=== PATIENT | female | born 1975 | race Two or more races ===

== ENCOUNTER 2016-07-18 13:03 | Emergency (ER) | payer OTHER ==
--- NOTE | 2016-07-18 13:44 | UCPHY ---
[id number] 4d 07/18/16 13:43 HPI/ROS: HPI: 40-year-old female presents to urgent care with chief concern headache, severe myalgias, nasal congestion, cough that onset suddenly 2 days ago. Reports temperature 100.0 at home. Denies dizziness, dysphagia, shortness of breath, chest pain, abdominal pain, nausea, vomiting, diarrhea, rash. Was exposed to flu last week at work. Did not receive a flu shot this year. No history of asthma or pneumonia. Her has MS. ROS:10 point review of systems is negative other than as stated in HPI (Mary Angela) Physical Exam: Vital signs stable, reviewed by me General: Awake, alert, calm, cooperative. No acute distress. Head: Atraumatic. EENT: Conjuctiva mildly injected. TMs intact, without redness or bulging. Nasal mucosa is erythematous with minimal clear discharge. Pharynx mildly erythematous. Uvula midline. No tonsillar abscess or exudates. No frontal or maxillary tenderness to percussion. Respiratory: Breathing unlabored. Lungs clear to auscultation bilaterally. No accessory muscle use. CV: Heart rate regular. S1-S2 present. No murmur. GI: Abdomen soft, nontender. Bowel sounds positive x4 quadrants. : Deferred Skin: Warm, dry, intact. No rashes present. Capillary refill brisk. Musculoskeletal: Full ROM all extremities. Neuro: Alert oriented x3. Strength equal in all 4 extremities. (Mary Angela) Constitutional: Initial Vital Signs Temperature (C) 36.9 C 07/18/16 13:42 Heart Rate 73 07/18/16 13:42 Respiratory Rate 18 07/18/16 13:42 Blood Pressure 94/54 L 07/18/16 13:42 O2 Sat (%) 95 07/18/16 13:42 O2 Delivery Mode Room Air Allergies/Adverse Reactions: No Known Allergies Allergy (Unverified 07/18/16 13:40) Home Medications: Medication Instructions Recorded HYDROcodone/HOMATROPINE HYCODA 5 - 10 ml PO HS PRN #60 ml 07/18/16 [Hycodan Syrup (*)] Oseltamivir Phosphate [Tamiflu] 75 mg PO BID #10 cap 07/18/16 Medical Decision Making ED Course/Re-evaluation: Lungs are clear auscultation bilaterally. No respiratory distress. No shortness of breath. Flu swab negative. Patient's symptoms are consistent with the flu. She was exposed to confirmed flu at work. Patient will be treated with Tamiflu as her has exacerbated MS presently and she requests treatment. (Mary Angela) Urgent Care PA supervision Physician documentation: The patient was evaluated and managed by the physician student assistant. My co- signature indicates that I have reviewed this chart and I agree with the findings and plan of care as documented. I am the secondary supervising physician. (Janusz Ladd) Differential Diagnosis: Differential includes but is not limited to influenza, bronchitis, reactive airway disease, pneumonia (Mary Anglea) Departure - Departure Disposition: Home, Routine, Self-Care Clinical Impression: Influenza-like illness Condition: Good Instructions: Influenza (ED) Additional Instructions: Plan: Your flu swab was negative Tamiflu as prescribed Drink plenty of fluids. Rest. You may use over the counter cough and cold medicine for symptom relief. You may use Tylenol or Ibuprofen for fever and pain control. Use saline spray or saline irrigation to each nostril twice daily-morning and evening. May use cough syrup 10 mL at bedtime only--never drink or drive while taking Return to Urgent Care or ER if you develop chest pain, difficulty breathing, or difficulty swallowing. Follow up with primary care next week--tell the office you are an "ER follow up appointment when you call. Return here promptly for worsening symptoms such as facial/tooth pain, chest pain, shortness of breath, unremitting fever, nausea, vomiting, difficulty swallowing. Referrals: NONE *PRIMARY CARE P,. [Primary Care Provider] - As per Instructions Ina Lopez MD [Medical Doctor] - As per Instructions Stand Alone Forms: Work Excuse Prescriptions: HYDROcodone/HOMATROPINE HYCODA [Hycodan Syrup (*)] 5 - 10 ml PO HS PRN #60 ml PRN Reason: severe cough preventing sleep Oseltamivir Phosphate [Tamiflu] 75 mg PO BID #10 cap - PQRS PQRS Measurement: Not applicable (Mary Angela)
[2016-07-18 13:45] VITALS: BP 94/54; PULSE 73; RESP 18; TEMP 98.4; O2SAT 95
== END 2016-07-18 13:53 | disposition home or self-care (01) ==
LOC: CED 13:03
DX: R51 Headache (principal); M79.1 Myalgia; R09.81 Nasal congestion; R05 Cough; R50.9 Fever, unspecified
CPT/HCPCS: 87400-PO; G0463-PO

== ENCOUNTER 2016-09-19 14:39 | Emergency (ER) | payer OTHER ==
[2016-09-19 15:05] VITALS: BP 105/51; PULSE 74; RESP 18; TEMP 98; O2SAT 97
== END 2016-09-19 15:47 | disposition left against medical advice (07) ==
LOC: CED 14:39
DX: M54.9 Dorsalgia, unspecified (principal); Z53.20 Procedure and treatment not carried out because of patient's decision for unspecified reasons